=== PATIENT | male | born 1950 | race Caucasian/White ===

== ENCOUNTER 2019-09-01 08:55 | Day surgery (SDC) | payer MEDICARE, OTHER ==
[~2019-09-01] VITALS: Ht 180.3 cm; Wt 81.2 kg
[~2019-09-01 08:55] MED LIST: CENTRUM SILVER1 EAC3 PO; LISINOPRIL10 MG PO; LORATADINE10 MG PO; NORCO 5-325 TA1 EACH PO; OCUVITE TABLET1 EAC1 PO; PROSTATE HEALT1 EACH PO
--- NOTE | 2019-09-01 11:31 | NUR ---
09/01/19 1131 Shauna Hutton 1124 PATIENT ARRIVES TO PACU SLEEPING, AWAKENS WITH VERBAL STIMULI, THEN BACK TO SLEEP. RESP EVEN AND UNLABORED, SNORING AT TIMES, BUT RESOLVED WHEN HOB ELEVATED TO 45DEGREES. NC AT 2 LITERS OFF ON ARRIVAL TO PACU. PATIENT PASSING GAS.
--- NOTE | 2019-09-02 06:44 | OR ---
[facility] [address], [place] [address] Signed DATE OF OPERATION: 09/01/2019 SURGEON: Joao Hammer MD PREOPERATIVE DIAGNOSES: 1. Half-brother with colon cancer (60s). 2. Hemorrhoidectomy in . 3. Hemorrhoids. POSTOPERATIVE DIAGNOSIS: Minimal internal hemorrhoids. PROCEDURE: Colonoscopy without biopsy. ESTIMATED BLOOD LOSS: None. INDICATIONS: Johnathan is a 68-year-old gentleman, who had a negative colonoscopy in 2007 and in 2013. He comes every 5 years for followup colonoscopy. His half-brother had developed colon cancer in his 60s, although he did later in his 80s. He thinks it was from food poisoning. David currently has no lower GI complaints. I met with David in the office. I gave him a pamphlet on colonoscopy. He remembers that test quite well. He understands there is risk including, but not limited to gas bloating, crampy abdominal pain, bleeding, perforation requiring surgery, and missed diagnosis. He also understands the need for IV conscious sedation. He told me today that he had some nausea afterwards from his previous colonoscopy. Consequently, we decided to give him 4 mg of Zofran IV and 6.25 mg of Phenergan IV before the test. He had expressed understanding and wished to proceed. PROCEDURE NOTE: Johnathan was taken into our endoscopy suite and placed in the left lateral decubitus position. After the IV Zofran and Phenergan, he was given a total of 5 mg of Versed and 100 mcg of fentanyl to cover the case. A digital rectal exam was performed. This was unremarkable. Specifically not much in the way of any external hemorrhoid tissue. He has good sphincter tone. Prostate is mildly indurated and mildly enlarged. The adult colonoscope was introduced then and advanced all around into the cecum under direct visualization of the camera without difficulty. His prep was good. The scope was slowly withdrawn. We could easily see his appendiceal orifice and ileocecal valve. We Electronically Signed By: JOAO HAMMER MD 09/02/19 0644 PATIENT NAME: JOHNATHAN HWANG OPERATIVE REPORT DATE OF : 50 REPORT #: [id number] PHYSICIAN: JOAO HAMMER MD PCP: SHARRON MORE MD REPORT IS CONFIDENTIAL AND NOT TO BE RELEASED WITHOUT AUTHORIZATION [facility] [address] [place] [id number] Signed had taken several pictures throughout for photodocumentation. We found no diverticulosis and no polyps throughout the colon or rectum. Upon retroflexion of scope, he does have minimal internal hemorrhoid tissue. The gas was then suctioned out and the colonoscope removed. Johnathan tolerated the procedure quite well. RECOMMENDATIONS: I will see Johnathan back in 5 years for repeat colonoscopy due to his family history. MD KATHI Michaud/DEMETRIAL /[id number] cc: MD Sharron Michaud MD Copies: JOAO HAMMER MD ~ Electronically Signed By: JOAO HAMMER MD 09/02/19 0644 PATIENT NAME: JOHNATHAN HWANG OPERATIVE REPORT DATE OF : 50 REPORT #: [id number] PHYSICIAN: JOAO HAMMER MD PCP: SHARRON MORE MD REPORT IS CONFIDENTIAL AND NOT TO BE RELEASED WITHOUT AUTHORIZATION
== END 2019-09-01 12:25 | disposition home or self-care (01) ==
LOC: OPS 08:55 → DS 08:55 → OPS 10:30
PROVIDERS: Colon & Rectal Surgery
PROC: 0DJD8ZZ Inspection of Lower Intestinal Tract, Via Natural or Artificial Opening Endoscopic (ICD-10-PCS; principal; 2019-09-01 10:30)
DX: Z12.11 Encounter for screening for malignant neoplasm of colon (principal); K64.8 Other hemorrhoids; E78.5 Hyperlipidemia, unspecified; N40.0 Benign prostatic hyperplasia without lower urinary tract symptoms; Z80.0 Family history of malignant neoplasm of digestive organs; Z87.19 Personal history of other diseases of the digestive system; Z98.890 Other specified postprocedural states; Z79.899 Other long term (current) drug therapy; Z88.8 Allergy status to other drugs, medicaments and biological substances
CPT/HCPCS: G0105; 99153; G0500; J2250; J2405; J2550; J3010; J7121

== ENCOUNTER 2025-02-19 07:30 | Day surgery (SDC) | payer MEDICARE, OTHER ==
[~2025-02-19] VITALS: Ht 180.3 cm; Wt 77.0 kg
[~2025-02-19 07:30] MED LIST changes: +COZAAR50 MG PO; +FLONASE ALLERG9.9 ML NAS; +IBLOOD GLUCOSE TEST STRIP 1 EA TEST VI PRN; +LACTATED RINGER'S 1,000 ML IV SCH; +LEQVIO284 MG/1.5 SUB-Q; +LIDOCAINE HCL 1% 5 ML SDV INJ ONE; +MULTI VITAMIN1 EACH PO; +VAZALORE81 MG PO; +ZETIA10 MG PO
[2025-02-19 07:40] VITALS: BP 144/66
[2025-02-19] MEDS ORDERED: ZYRTEC10 M3 PO (07:47)
[2025-02-19] MEDS ORDERED: VITAMIN C250 M1 PO (07:47)
[2025-02-19] MEDS ORDERED: PROSTATE SR SO1 EACH PO (07:48)
[2025-02-19] MEDS ORDERED: LIDOCAINE HCL 2% 5 ML SDV ONE (08:27)
--- NOTE | 2025-02-19 09:38 | NUR ---
02/19/25 0938 Yulissa Hernandez 0928- PT ARRIVES TO PACU, LEFT LATERAL POSITION, NON REACTIVE TO STIMULUS. BREATHING EVEN AND NON LABORED ON ROOM AIR. LR INFUSING TO RW IV, ABD SOFT, NON DISTENDED. ALL MONITORS APPLIED. 0935- REPEAT BP 82/56, LR HANGING WIDE OPEN AND MOVED HIGHER TO INCREASE FLOW RATE. PT REACTIVE TO REPETITIVE TACTILE STIMULUS AND OPENS EYES. REORIENTED TO TIME AND PLACE, ENCOURAGED TO PASS GAS.
[2025-02-19 10:13] VITALS: BP 153/82
== END 2025-02-19 10:20 | disposition home or self-care (01) ==
LOC: DS 07:30
PROVIDERS: ATTEND Surgery
PROC: 0DJD8ZZ Inspection of Lower Intestinal Tract, Via Natural or Artificial Opening Endoscopic (ICD-10-PCS; principal; 2025-02-19 09:15)
DX: Z12.11 Encounter for screening for malignant neoplasm of colon (principal); K64.8 Other hemorrhoids; I10 Essential (primary) hypertension; Z80.0 Family history of malignant neoplasm of digestive organs; Z79.899 Other long term (current) drug therapy; Z88.8 Allergy status to other drugs, medicaments and biological substances
CPT/HCPCS: 00811; J2003; J2704; J7121